=== PATIENT | male | born 1965 | race Caucasian/White ===

== ENCOUNTER 2020-10-30 09:18 | Emergency (ER) | payer BC, SELFPAY ==
--- NOTE | ~2020-10-30 | XR_ITS ---
EXAMINATION: XR TOES, RIGHT CLINICAL INFORMATION: Right great toe injury. Pain COMPARISON: None TECHNIQUE: 3 views of the right toes were obtained. FINDINGS: There are no fractures or dislocations. No joint effusion is identified. No bone, joint or soft tissue abnormality is demonstrated. XR/XR toe RT min 2V IMPRESSION: Unremarkable right toe examination.
[2020-10-30 09:40] VITALS: BP 120/85; PULSE 75; RESP 16; TEMP 37; O2SAT 97; BMI 29.1
--- NOTE | 2020-10-30 09:59 | ED.LOWEXIN ---
HPI - Extremity Injury (Lower) General Chief Complaint: Extremity Injury, Lower Stated Complaint: rt toe injury Time Seen by Provider: 10/30/20 09:36 Source: patient Mode of arrival: ambulatory Limitations: no limitations History of Present Illness HPI Narrative: 55-year-old male with past medical history of hyperlipidemia who presents to the emergency department with right great toe injury. States his accidentally slammed his toe in the door since has had pain swelling and injury to the toenail itself. Due to concern he felt he needed to be seen. Patient denies any other injury or trauma states he is able to ambulate with a limp. It is uncertain if his tetanus is up-to-date but does not think he has had a vaccine in the last 5 years. Denies other areas of injury or trauma Related Data Previous Rx's Medication Instructions Recorded acetaminophen [Tylenol 8 Hour] 650 mg PO Q8H PRN #30 tab 10/30/20 ibuprofen 600 mg PO Q6H PRN #40 tab 10/30/20 Allergies Allergy/AdvReac Type Severity Reaction Status Date / Time doxycycline [DOXYCYCLINE] Allergy Unknown VOMITING Unverified 12/27/19 16:51 azithromycin Allergy Vomiting Verified 10/30/20 09:40 Review of Systems Review of Systems: Constitutional : No Weight loss, No Fever, No Chills, No Night Sweats, No Fatigue, No Malaise ENT/Mouth : No Hearing loss, No Ear Pain, No Nasal Congestion, No Sinus Pain, No Hoarseness, No sore throat, No Rhinorrhea, No Swallowing Difficulty Eyes: No Eye Pain, No Swelling, No Redness, No Foreign Body, No Discharge, No Vision Changes Cardiovascular : No Chest Pain, No SOB, No Dyspnea on Exertion, No Orthopnea, No Edema, No Palpitations Respiratory : No Cough, No Sputum, No Wheezing, No Smoke Exposure, No Dyspnea Gastrointestinal : No Nausea, No Vomiting, No Diarrhea, No Constipation, No abdominal Pain, No Hematochezia, No Melena Genitourinary : no irregular bleeding, No Dysuria, No Urinary Frequency, No Hematuria, No Urinary Incontinence, No Urgency, No Flank Pain, No Urinary Flow Changes, No Hesitancy Musculoskeletal : + joint pain, No Myalgias, + Joint Swelling Skin : No Skin Lesions, No rash Neuro : No Weakness, No Numbness, No Paresthesias, No Loss of Consciousness, No Dizziness, No Headache Psych : No Anxiety/Panic, No Depression, No SI/HI/AH/VH, No Social Issues, Heme/Lymph: No Bruising, No Bleeding,No Lymphadenopathy Endocrine : No Polyuria, No Polydipsia, No Temperature Intolerance [facility] Past Medical History Attestation statement: The following information was validated with the patient. Source: old records reviewed and obtained from family Medical History (Updated 10/30/20 @ 10:50 by MILAGROS Birch) High cholesterol Surgical History (Updated 10/30/20 @ 09:43 by Alix Alvarez) S/P foot surgery, left Social History Social History Advance Directives: No Advance Directives Information Provided: Yes Physical Exam Vital Signs: Vital Signs: Last Vital Signs Temp 98.6 F 10/30/20 09:40 Pulse 75 10/30/20 09:40 Resp 16 10/30/20 09:40 BP 120/85 10/30/20 09:40 Pulse Ox 97 10/30/20 09:40 Body Mass Index 29.1 vital signs have been reviewed as normal and appeared to be correct. Blood pressure normal. Heart rate normal. Respiration rate normal. Temperature normal. Oxygen saturation normal. Appearance: Alert. Oriented X3. No acute distress. Head: Normal external exam. Normocephalic. Atraumatic. No Mcgee signs noted. No raccoon eyes noted Eyes: Conjunctiva and sclera normal. ENT: EAC normal. Moist mucous membranes. No drooling noted. No muffled voice noted. Neck: Normal inspection. Neck supple. FROM. No meningeal signs. CVS: Pulses normal throughout. Respiratory: No respiratory distress. Painless inspiration. No accessory muscle usage noted Abdomen: No visible injury noted. Back: Full range of motion noted. Skin: Skin warm and dry. Normal skin color. Normal skin turgor. Extremities: No lower extremity edema. Extremities exhibit normal range of motion. Patient with isolated right great toe injury to as it seems to be broken into pieces nailbed is intact no active bleeding no open lacerations noted. Good distal pulses and otherwise intact cap refill to this extremity Neuro: Oriented X 3. No motor deficit. No sensory deficit. Course Course Course Narrative: Patient's x-ray negative, excess damage now removed nail bed intact will place Xeroform guaze and dressing will give postop shoe for comfort will discharge at this time. Procedures Laceration Laceration 1: Site: other (right great toe nail injury, no nailbed involvement, nailbed intact. Free nail removed and wound cleansed throughly, dressed with Xerofom and soft dressing. ) Side (If applicable): right MDM - Extremity Injury (Lower) MDM Narrative Medical decision making narrative: Patient's vital signs are stable and he is afebrile. Patient presenting to the emergency department with right great toe injury. Nail bed is intact however patient with damage to the right great toenail itself will require digital block, a thorough cleaning and removal of nail fragments. We will obtain an x-ray of this region new ensure the absence of fracture which would classifies open fracture will update patient's tetanus is he states he does think he has had this in the last 5 years. Patient's limb is otherwise neurovascularly intact no other signs of trauma will continue to monitor. Discharge Plan Discharge Clinical Impression: Injury of toenail of right foot Qualifiers: Encounter type: initial encounter Qualified Code(s): S99.921A - Unspecified injury of right foot, initial encounter Patient Disposition: Home, Self-Care Instructions: Nail Avulsion (ED), Nail Removal (ED) Additional Instructions: You were seen in the emergency department for right great toe nail injury. The nail bed was still intact part of the injured nail was removed please keep this area clean and dry changing the dressing twice daily. Keep it covered at all times show infection. Do not pull out the remaining toenail this will help the new toenail form. An x-ray was done without evidence of a fracture. Prescriptions: New ibuprofen 600 mg tablet 600 mg PO Q6H PRN (Reason: pain) Qty: 40 RF: 0 acetaminophen [Tylenol 8 Hour] 650 mg tablet extended release 650 mg PO Q8H PRN (Reason: pain) Qty: 30 RF: 0 Interventions: ED Discharge Assessment Last Done: 10/30/20 11:11 Discharge Date/Time: 10/30/20 11:00 Print Language: Ukrainian
[2020-10-30] MEDS: Diphth,Pertus(ACell),Tet Adult 0.5 ML SYRINGE IM (10:04)
[2020-10-30] MEDS: Lidocaine HCl 2 % MPF 5 ML VIAL SUBCUT (10:06)
== END 2020-10-30 11:00 | disposition home or self-care (01) ==
PROVIDERS: Emergency Provider Emergency Medicine Emergency Medical Services; PCP Internal Medicine
DX: S99.921A Unspecified injury of right foot, initial encounter (principal); W22.8XXA Striking against or struck by other objects, initial encounter; Y93.9 Activity, unspecified; Y92.9 Unspecified place or not applicable; Y99.9 Unspecified external cause status
CPT/HCPCS: 11730; 73660; 90471; 90715; 99283; 99284